=== PATIENT | female | born 1990 | race Caucasian/White ===

== ENCOUNTER 2023-06-17 19:59 | Emergency (ER) | payer SELFPAY ==
[2023-06-17 20:17] VITALS: BP 139/90; PULSE 99; RESP 18; TEMP 36.6; O2SAT 98; BMI 38.4
== END 2023-06-17 20:34 | disposition left against medical advice (07) ==
LOC: ER 20:08
PROVIDERS: Emergency Provider Family Medicine
DX: Z53.21 Procedure and treatment not carried out due to patient leaving prior to being seen by health care provider (principal)